=== PATIENT | female | born 1970 | race Caucasian/White ===

== ENCOUNTER → 2018-06-13 | Outpatient (CLI) | payer BC ==
--- NOTE | 2018-06-14 12:34 | RADIOLOGY IMAGING REPORT ---
FACILITY: [facility] [place] PATIENT NAME: KSENIA ODONNELL : [id number] MR: [id number] V: [id number] EXAM DATE: [id number] ORDERING PHYSICIAN: JALEN PALOMO TECHNOLOGIST: Aurora Ji PROCEDURE:BILATERAL DIGITAL SCREENING MAMMOGRAM WITH CAD ASSISTED INTERPRETATION & 3D TOMOSYNTHESIS COMPARISON:01/19/2010, 01/14/2009 VIEWS OBTAINED: Bilateral 2D full field CC & MLO & corresponding 3D tomography INDICATIONS:SCREENING/Right breast benign core needle biopsy. TISSUE DENSITY: Scattered fibroglandular densities. FINDINGS: Right breast circumscribed 12mm mass at 6 o'clock posterior depth is unchanged. A metal clip near the mass is from a prior core needle biopsy. A Left breast medial circumscribed 10mm mass at posterior depth is less prominent. There are no mammographic findings suspicious for malignancy. DIAGNOSTIC CATEGORY 2--BENIGN FINDING. RECOMMENDATIONS: ROUTINE ANNUAL BILATERAL MAMMOGRAM AND CLINICAL EVALUATION. IMPRESSION: BIRADS 2: Benign finding. Dictated by: Christin Dominguez M.D. on 06/14/2018 at 10:24 Transcribed by: ANALI on 06/14/2018 at 11:06 Approved by: Christin Dominguez M.D. on 06/14/2018 at 12:33 [facility]
== END ==
LOC: MAMO 08:30
PROVIDERS: ATTEND Physician Assistant
DX: Z12.31 Encounter for screening mammogram for malignant neoplasm of breast (principal); N63.20 Unspecified lump in the left breast, unspecified quadrant; N63.13 Unspecified lump in the right breast, lower outer quadrant
CPT/HCPCS: 77063; 77067

== ENCOUNTER → 2019-01-02 | Outpatient (CLI) | payer BC | LOC: LAB 07:24 | PROVIDERS: ATTEND Physician Assistant | DX: R19.7 Diarrhea, unspecified (principal) | CPT/HCPCS: 83630; 87045; 87177; 87324; 87338; 87449 ==